=== PATIENT | female | born 1980 | race Caucasian/White ===

== ENCOUNTER → 2016-12-12 | Outpatient (CLI) | payer BC, OTHER ==
[~2016-12-12] MED LIST: PRENTAB26 PO
--- NOTE | 2016-12-12 20:42 | DIAGNOSTIC IMAGING REPORT ---
RIGHT SHOULDER 3 VIEWS HISTORY: ACUTE PAIN OF R SHOULDER Right COMPARISON: None. FINDINGS: There is no fracture or dislocation. Soft tissues are unremarkable. No radiopaque foreign bodies. IMPRESSION: No fractures. Electronically signed by: Quintin Austin M.D. 12/12/2016 8:41 PM Dictated Date/Time: 12/12/2016 8:39 PM
== END | disposition home or self-care (01) ==
LOC: C.RAD 20:00
PROVIDERS: ATTEND Nurse Practitioner
DX: M25.511 Pain in right shoulder (principal)

== ENCOUNTER → 2017-03-06 | Outpatient (CLI) | payer BC, OTHER ==
[2017-03-06 16:09] LABS: THYROID STIMULATING HORMONE 0.741 uIu/ml (0.300-4.500)
== END | disposition home or self-care (01) ==
LOC: C.LAB1850 14:12
PROVIDERS: ATTEND Internal Medicine Endocrinology, Diabetes & Metabolism
DX: R94.6 Abnormal results of thyroid function studies (principal); E04.9 Nontoxic goiter, unspecified